=== PATIENT | female | born 1980 | race Caucasian/White ===

== ENCOUNTER 2016-12-25 20:05 | Emergency (ER) | payer OTHER ==
[~2016-12-25] VITALS: Ht 162.6 cm; Wt 70.5 kg
[~2016-12-25 20:05] MED LIST: TOBR.3%O LEFT EYE
[2016-12-25 20:07] VITALS: BP 140/68; PULSE 92; RESP 16; TEMP 98.6; O2SAT 99
--- NOTE | 2016-12-25 20:23 | PD ---
Physical Exam Date Seen by Provider: Dec 25, 2016 Time Seen by Provider: 20:18 Narrative 36 YOWF FEEL DIZZY. + LOC ,N/V. NECK PAIN NO BACK PAIN 11/17 PAIN . LMP . VS REVIEWED WAITING FOR BED PLACEMENT Data Data Last Documented VS Vital Signs Date Time Temp Pulse Resp B/P Pulse Ox O2 Delivery O2 Flow Rate FiO2 12/25/16 20:07 98.6 92 16 140/68 99 Room Air MDM Supervised Visit with SATURNINO: Ramakrishna Abarca Dec 25, 2016 20:23
[2016-12-25 20:29] VITALS: BP 118/73; PULSE 76; RESP 18; TEMP 97.7; O2SAT 99
[2016-12-25 20:52] LABS: AUTOMATED NEUTROPHIL # 3.9 TH/MM3 (1.8-7.7); BASOPHIL % 0.7 % (0.0-2.0); EOSINOPHIL # 0.1 TH/MM3 (0-0.4); EOSINOPHIL % 0.9 % (0.0-4.0); HEMATOCRIT 41.7 % (35.0-46.0); HEMO FLAGS DIFF FINAL; LYMPH % 30.8 % (9.0-44.0); LYMPHOCYTE # 2.1 TH/MM3 (1.0-4.8); MEAN CELL VOLUME 99.8 FL (80.0-100.0); MEAN CORPUSCULAR HEMOGLOBIN 33.5 PG (27.0-34.0); MEAN CORPUSCULAR HGB CONC 33.5 % (32.0-36.0); MONO % 10.3 % (0.0-8.0); NEUT % 57.3 % (16.0-70.0); PLATELET COUNT 229 TH/MM3 (150-450); RED BLOOD COUNT 4.18 MIL/MM3 (4.00-5.30); RED CELL DISTRIBUTION WIDTH 13.2 % (11.6-17.2); WHITE BLOOD COUNT 6.8 TH/MM3 (4.0-11.0)
[2016-12-25 21:08] LABS: ANION GAP 7 MEQ/L (5-15); AST (GOT) 15 U/L (15-37); BLOOD UREA NITROGEN 11 MG/DL (7-18); CHLORIDE 108 MEQ/L (98-107); GLOMERULAR FILTRATION RATE 76 ML/MIN (>89); POTASSIUM 3.8 MEQ/L (3.5-5.1); SODIUM (NA) 140 MEQ/L (136-145)
[2016-12-25 21:09] LABS: ALT (GPT) 16 U/L (10-53)
[2016-12-25 21:10] LABS: ALCOHOL 275 MG/DL (0-5)
[2016-12-25 21:11] LABS: ALKALINE PHOSPHATASE 73 U/L (45-117); TOTAL BILIRUBIN ADULT 0.2 MG/DL (0.2-1.0)
--- NOTE | 2016-12-25 21:39 | RADRPT ---
EXAM DATE/TIME: 12/25/2016 20:49 [facility] COMPARISON: No previous studies available for comparison. INDICATIONS : Trauma, fall. RADIATION DOSE: 56.35 CTDIvol (mGy) MEDICAL HISTORY : None SURGICAL HISTORY : None. ENCOUNTER: Initial ACUITY: 1 day PAIN SCALE: 6/10 LOCATION: cranial TECHNIQUE: Multiple contiguous axial images were obtained of the head. Using automated exposure control and adj ustment of the mA and/or kV according to patient size, radiation dose was kept as low as reasonably a chievable to obtain optimal diagnostic quality images. DICOM format image data is available electro nically for review and comparison. FINDINGS: CEREBRUM: The ventricles are normal for age. No evidence of midline shift, mass lesion, hemorrhage or acute in farction. No extra-axial fluid collections are seen. POSTERIOR FOSSA: The cerebellum and brainstem are intact. The 4th ventricle is midline. The cerebellopontine angle i s unremarkable. EXTRACRANIAL: The visualized portion of the orbits is intact. SKULL: The calvaria is intact. No evidence of skull fracture. CONCLUSION: Normal examination for a patient of this age. Ramakrishna Johnson MD on December 25, 2016 at 21:33 Board Certified Radiologist. This report was verified electronically.
--- NOTE | 2016-12-25 22:29 | PD ---
HPI Chief Complaint: Syncope/Near-Syncope Time Seen by Provider: 20:26 Travel History International Travel<30 days: No Contact w/Intl Traveler<30days: No Traveled to known affect area: No History of Present Illness HPI 36-year-old female came to the emergency room for altered mental status after she was drunk and fell. Patient hit her head on the bathroom floor and since then as per her boyfriend has been in and out of consciousness. Here patient is seems very intoxicated. She is answering questions with slurred speech. She now she is in the hospital and the day of the week. She remembers falling and hitting her head. She is otherwise a healthy person as per the boyfriend. Vital signs are stable. No history of seizure or vomiting. PFSH Past Medical History Narrative Medical List of her past medical, surgical, social and family history reviewed from the nursing note. Medical History: Denies Significant Hx Hx Anticoagulant Therapy: No Cardiovascular Problems: No Chemotherapy: No Cerebrovascular Accident: No Diabetes: No Diminished Hearing: No Respiratory: No Tetanus Vaccination: < 5 Years Influenza Vaccination: Yes ?: Not LMP: 12/03/16 Past Surgical History Section: Yes Other Surgery: Yes (BREAST AUGMENTATION) Social History Alcohol Use: Yes (OCC) Tobacco Use: Yes (1/2 PPD) Substance Use: No Allergies-Medications (Allergen,Severity, Reaction): Coded Allergies: No Known Allergies (Unverified , 12/25/16) Comments No known drug allergies. Reported Meds & Prescriptions Reported Meds & Active Scripts Active No Active Prescriptions or Reported Medications Narrative Medication List of her home medications reviewed from the nursing note. Review of Systems Except as stated in HPI: all other systems reviewed are Neg Physical Exam Narrative GENERAL: Awake, alert, intoxicated, slurred speech SKIN: Focused skin assessment warm/dry. HEAD: Scalp hematoma on the occiput with a 1 cm laceration that's slowly oozing blood EYES: Pupils equal and round. No scleral icterus. No injection or drainage. ENT: No nasal bleeding or discharge. Mucous membranes pink and moist. NECK: Trachea midline. No JVD. CARDIOVASCULAR: Regular rate and rhythm. No murmur appreciated. RESPIRATORY: No accessory muscle use. Clear to auscultation. Breath sounds equal bilaterally. GASTROINTESTINAL: Abdomen soft, non-tender, nondistended. Hepatic and splenic margins not palpable. MUSCULOSKELETAL: No obvious deformities. No clubbing. No cyanosis. No edema. NEUROLOGICAL: Intoxicated, slurred speech. No obvious cranial nerve deficits. Motor grossly within normal limits. PSYCHIATRIC: Appropriate mood and affect; insight and judgment normal. Data Data Last Documented VS Vital Signs Date Time Temp Pulse Resp B/P (MAP) Pulse Ox O2 Delivery O2 Flow Rate FiO2 12/26/16 04:06 70 14 113/70 (84) 99 12/25/16 20:29 97.7 Room Air Orders Orders Ct Brain W/O Iv Contrast(Rout) (12/25/16 ) Complete Blood Count With Diff (12/25/16 20:27) Comprehensive Metabolic Panel (12/25/16 20:27) Alcohol (Ethanol) (12/25/16 20:27) ^ Saline Lock (12/25/16 20:27) Power Lineman / Telemetry BIGG.Q8H (12/25/16 20:27) Lidocai-Epi 1%-1:100,000 Inj (Xylocaine- (12/25/16 22:30) Lidocai-Epi 1%-1:100,000 Inj (Xylocaine- (12/25/16 22:45) Lidocai-Epi 2%-1:100,000 Inj (Xylocaine- (12/25/16 22:45) Lidocaine 2% Inj (Xylocaine 2% Inj) (12/25/16 22:43) Lidocaine 2% Inj (Xylocaine 2% Inj) (12/25/16 23:00) Labs Laboratory Tests Test 12/25/16 20:30 White Blood Count 6.8 TH/MM3 Red Blood Count 4.18 MIL/MM3 Hemoglobin 14.0 GM/DL Hematocrit 41.7 % Mean Corpuscular Volume 99.8 FL Mean Corpuscular Hemoglobin 33.5 PG Mean Corpuscular Hemoglobin Concent 33.5 % Red Cell Distribution Width 13.2 % Platelet Count 229 TH/MM3 Mean Platelet Volume 7.9 FL Neutrophils (%) (Auto) 57.3 % Lymphocytes (%) (Auto) 30.8 % Monocytes (%) (Auto) 10.3 % Eosinophils (%) (Auto) 0.9 % Basophils (%) (Auto) 0.7 % Neutrophils # (Auto) 3.9 TH/MM3 Lymphocytes # (Auto) 2.1 TH/MM3 Monocytes # (Auto) 0.7 TH/MM3 Eosinophils # (Auto) 0.1 TH/MM3 Basophils # (Auto) 0.0 TH/MM3 CBC Comment DIFF FINAL Differential Comment Blood Urea Nitrogen 11 MG/DL Creatinine 0.85 MG/DL Random Glucose 98 MG/DL Total Protein 7.2 GM/DL Albumin 3.8 GM/DL Calcium Level 8.1 MG/DL Alkaline Phosphatase 73 U/L Aspartate Amino Transf (AST/SGOT) 15 U/L Alanine Aminotransferase (ALT/SGPT) 16 U/L Total Bilirubin 0.2 MG/DL Sodium Level 140 MEQ/L Potassium Level 3.8 MEQ/L Chloride Level 108 MEQ/L Carbon Dioxide Level 25.0 MEQ/L Anion Gap 7 MEQ/L Estimat Glomerular Filtration Rate 76 ML/MIN Ethyl Alcohol Level 275 MG/DL [facility] Medical Decision Making Medical Screen Exam Complete: Yes Emergency Medical Condition: Yes Medical Record Reviewed: Yes Differential Diagnosis Intracranial bleed, skull fracture, contusion, concussion, acute alcohol intoxication Narrative Course 10:[address] scan is back and it is within normal limits. Blood test results are within acceptable limits as well. Alcohol level however is high. The PA will stapled the wound. Please refer to his procedure note. Patient will be eventually discharged. She'll go home with her boyfriend. Procedures EKG Prior to Arrival: No Diagnosis Primary Impression: Concussion Additional Impressions: Fall Closed head injury Scalp laceration Acute alcohol intoxication Referrals: Primary Care Physician 2 days Additional Instructions: Please return to the ER if the condition worsens or any other new concerns. Please be observed for head injury for next 24 hours from the time of injury for signs of worsening mental status. The polo need to be taken out in 7-10 days. Apply the bacitracin ointment on the wound until the polo comes out. Drink alcohol in moderation. Follow up with your primary care in couple days. Med/Other Pt SpecificInfo: No Change to Meds Scripts No Active Prescriptions or Reported Meds Disposition: 01 DISCHARGE HOME Condition: Stable Tj Pabon MD Dec 25, 2016 22:29
[2016-12-25] MEDS ORDERED: LIDOCAINE 1%/EPINEPHrine 1:100,000 SOLN 20 ML VIAL INFIL ONE ×2 (22:30→22:45)
[2016-12-25] MEDS ORDERED: LIDOCAINE HCL 2% 20 ML VIAL ONE (22:43)
[2016-12-25] MEDS ORDERED: LIDOCAINE 2%/EPINEPHrine 1:100,000 30ML MDV INFIL ONE (22:45)
--- NOTE | 2016-12-25 22:53 | PD ---
Physical Exam Narrative I was asked by Dr. Pabon to repair patient's laceration. Please see her documentation for full H&P Data Data Last Documented VS Vital Signs Date Time Temp Pulse Resp B/P Pulse Ox O2 Delivery O2 Flow Rate FiO2 12/25/16 20:29 97.7 76 18 118/[address] Brain W/O Iv Contrast(Rout) (12/25/16 ) Complete Blood Count With Diff (12/25/16 20:27) Comprehensive Metabolic Panel (12/25/16 20:27) Drug Screen, Random Urine (12/25/16 20:27) Alcohol (Ethanol) (12/25/16 20:27) ^ Saline Lock (12/25/16 20:27) Still Runner / Telemetry BIGG.Q8H (12/25/16 20:27) Lidocai-Epi 1%-1:100,000 Inj (Xylocaine- (12/25/16 22:30) Lidocai-Epi 1%-1:100,000 Inj (Xylocaine- (12/25/16 22:45) Lidocai-Epi 2%-1:100,000 Inj (Xylocaine- (12/25/16 22:45) Lidocaine 2% Inj (Xylocaine 2% Inj) (12/25/16 22:43) Labs Laboratory Tests Test 12/25/16 20:30 White Blood Count 6.8 TH/MM3 Red Blood Count 4.18 MIL/MM3 Hemoglobin 14.0 GM/DL Hematocrit 41.7 % Mean Corpuscular Volume 99.8 FL Mean Corpuscular Hemoglobin 33.5 PG Mean Corpuscular Hemoglobin 33.5 % Concent Red Cell Distribution Width 13.2 % Platelet Count 229 TH/MM3 Mean Platelet Volume 7.9 FL Neutrophils (%) (Auto) 57.3 % Lymphocytes (%) (Auto) 30.8 % Monocytes (%) (Auto) 10.3 % Eosinophils (%) (Auto) 0.9 % Basophils (%) (Auto) 0.7 % Neutrophils # (Auto) 3.9 TH/MM3 Lymphocytes # (Auto) 2.1 TH/MM3 Monocytes # (Auto) 0.7 TH/MM3 Eosinophils # (Auto) 0.1 TH/MM3 Basophils # (Auto) 0.0 TH/MM3 CBC Comment DIFF FINAL Differential Comment Sodium Level 140 MEQ/L Potassium Level 3.8 MEQ/L Chloride Level 108 MEQ/L Carbon Dioxide Level 25.0 MEQ/L Anion Gap 7 MEQ/L Blood Urea Nitrogen 11 MG/DL Creatinine 0.85 MG/DL Estimat Glomerular Filtration 76 ML/MIN Rate Random Glucose 98 MG/DL Calcium Level 8.1 MG/DL Total Bilirubin 0.2 MG/DL Aspartate Amino Transf 15 U/L (AST/SGOT) Alanine Aminotransferase 16 U/L (ALT/SGPT) Alkaline Phosphatase 73 U/L Total Protein 7.2 GM/DL Albumin 3.8 GM/DL Ethyl Alcohol Level 275 MG/DL [facility] Supervised Visit with SATURNINO: No Procedures Procedure Narrative LACERATION REPAIR LOCATION: Left occipital lobe LENGTH: Approximately 1.5 cm in total length NUMBER OF STITCHES/MONSTER: 3 monster REPAIR: Verbal consent was obtained. The area of the laceration was cleaned and prepped. The laceration was infiltrated with lidocaine without epi. The wound was copiously irrigated and explored without evidence of foreign body, bony involvement, ligament injury, tendon injury, or neurovascular injury. The wound was closed using monster. This was a single layer repair. The patient was advised to keep the affected area as clean and dry as possible using soap and water. To not soak or submerge wound and to have Monster removed in 5-7 days. There were no complications. Patient tolerated the procedure well. Patient verbalized understanding of these instructions. Diagnosis Primary Impression: Concussion Qualified Code: S06.0X1A - Concussion with loss of consciousness of 30 minutes or less, initial encounter Additional Impressions: Closed head injury Qualified Code: S09.90XA - Closed head injury, initial encounter Scalp laceration Qualified Code: S01.01XA - Laceration of scalp, initial encounter Fall Qualified Code: W19.XXXA - Fall, initial encounter Acute alcohol intoxication Qualified Code: F10.929 - Acute alcoholic intoxication with complication Referrals: Primary Care Physician 2 days Additional Instruction: Please return to the ER if the condition worsens or any other new concerns. Please be observed for head injury for next 24 hours from the time of injury for signs of worsening mental status. The monster need to be taken out in 7-10 days. Apply the bacitracin ointment on the wound until the monster comes out. Drink alcohol in moderation. Follow up with your primary care in couple days. Scripts No Active Prescriptions or Reported Meds Disposition: 01 DISCHARGE HOME Condition: Stable Anders Espinoza Dec 25, 2016 22:53
[2016-12-25] MEDS ORDERED: LIDOCAINE HCL 2% 20 ML VIAL INFIL ONE (23:00)
[2016-12-26 04:06] VITALS: BP 113/70
== END 2016-12-26 04:08 | disposition home or self-care (01) ==
LOC: NEPC 20:05
DX: S06.0X0A Concussion without loss of consciousness, initial encounter (principal); S01.01XA Laceration without foreign body of scalp, initial encounter; F10.129 Alcohol abuse with intoxication, unspecified; F17.200 Nicotine dependence, unspecified, uncomplicated; W18.00XA Striking against unspecified object with subsequent fall, initial encounter
CPT/HCPCS: 12001; 70450; 80053; 80307; 85025